=== PATIENT | male | born 1955 | race African-American/Black ===

== ENCOUNTER 2017-07-11 13:40 | Inpatient (IN) | payer OTHER ==
[~2017-07-11] VITALS: Ht 175.3 cm; Wt 86.0 kg
[2017-07-11] VITALS (13 sets, daily range): BP systolic 116–136; BP diastolic 68–90
[2017-07-11 14:22] LABS: Basophils # (auto) 0.1 uL; Basophils % (auto) 0.8 % (0.0-2.0); Eosinophils # (auto) 0.2 uL; Eosinophils % (auto) 2.5 % (0.0-7.0); Hematocrit 47.3 % (41.0-53.0); Hemoglobin 15.6 g/dL (13.5-17.5); Lymphocytes # (auto) 2.4 uL; Lymphocytes % (auto) 33.7 % (10.0-50.0); Mean Corpuscular Hemoglobin 30.4 pg (28.0-32.0); Mean Corpuscular Hgb Conc. 32.9 g/dL (32.0-36.0); Mean Corpuscular Volume 92.2 fL (80.0-100.0); Mean Platelet Volume 8.6 fL (6.9-10.8); Monocytes # (auto) 0.5 uL; Monocytes % (auto) 7.4 % (0.0-12.0); Neutrophils # (auto) 3.9 uL; Neutrophils % (auto) 55.6 % (37.0-80.0); Nucleated Red Blood Cells % 0.1 %; Platelet Count (auto) 246 10^3/uL (140-450); Red Cell Distribution Width 13.2 % (11.8-14.3); White Blood Cell 7.1 10^3/uL (4.4-10.8)
[2017-07-11 14:50] LABS: Albumin 3.6 g/dL (3.4-5.0); BUN/Creatinine Ratio 16.2; Bilirubin, Total 0.2 mg/dL (0.2-1.0); Calcium 8.9 mg/dL (8.5-10.1); Magnesium 2.3 mg/dL (1.6-2.6); Potassium 4.5 mmol/L (3.5-5.1); Total Protein 7.7 g/dL (6.4-8.2)
[2017-07-11] MEDS ORDERED: MORPHINE SULF INJ 2 MG/ML SYRINGE 1ML IV ONE (16:45)
[2017-07-11] MEDS ORDERED: ASPirin 81 mg TAB PO ONE (16:45)
[2017-07-11] MEDS ORDERED: ONDANSETRON HCL 4 MG/2 ML VIAL IV ONE (16:45)
[2017-07-11] MEDS ORDERED: HEPARIN SODIUM (PORCINE) 5000 UNITS/ML 1ML VIAL IV ONE (16:45)
[2017-07-11] MEDS ORDERED: CLOPIDOGREL BISULFATE 75 MG TAB PO SCH (17:00)
[2017-07-11] MEDS ORDERED: PROMETHAZINE HCL 25 MG/ML 1ML IV PRN (17:00)
[2017-07-11] MEDS: InsuLIN REG 1unit/0.01ml Soln (100units/ml) SC SCH ×2 (17:00→22:30)
[2017-07-11] MEDS ORDERED: DEXTROSE (50%) 50ML SYRG IV PRN (17:00)
[2017-07-11] MEDS ORDERED: LORazepam 0.5 MG TAB PO PRN (17:00)
[2017-07-11] MEDS ORDERED: MORPHINE SULF INJ 2 MG/ML SYRINGE 1ML IV PRN ×2 (17:00)
[2017-07-11] MEDS ORDERED: TEMAZEPAM 15 MG CAP PO PRN (17:00)
[2017-07-11] MEDS ORDERED: ALBUTEROL SULF 2.5 MG/0.5ML(0.5%) NEB SOLN NEB PRN (17:00)
[2017-07-11] MEDS ORDERED: NITROGLYCERIN 0.4 MG SL TAB SL PRN (17:00)
[2017-07-11] MEDS ORDERED: ACETAMINOPHEN 500 MG TAB PO PRN (17:00)
[2017-07-11] MEDS ORDERED: HYDROcodone-ACET 5/325MG TAB PO PRN (17:00)
[2017-07-11] MEDS ORDERED: LACTULOSE 20Gm/30ML SOLN PO PRN (17:00)
[2017-07-11] MEDS: ACCU-CHEK COMFORT CURVE STRIP VI SCH ×2 (17:18→22:30)
[2017-07-11] MEDS: SODIUM CHLORIDE 0.9% 1,000 ML IV SCH (17:23)
[2017-07-11] MEDS ORDERED: ENOXAPARIN SOD 80 MG/0.8ML SYRINGE SC SCH (17:30)
[2017-07-11] MEDS ORDERED: fentaNYL CITRATE 100 MCG/2 ML VL ONE (17:59)
[2017-07-11] MEDS ORDERED: ANGIOMAX 250 MG VIAL IV ONE (17:59)
[2017-07-11] MEDS ORDERED: SODIUM CHL 0.9% 50 ML ONE (18:00)
[2017-07-11] MEDS ORDERED: MIDAZOLAM HCL 1MG/1ML-2 ML VIAL ONE (18:00)
[2017-07-11] MEDS ORDERED: HEPARIN 1,000 UNITS/ml 1ML VIAL ONE (19:00)
[2017-07-11] MEDS ORDERED: IODIXANOL 320MG/ML 100ML BTL IV ONE (19:00)
[2017-07-11] MEDS ORDERED: LIDOCAINE 2%HCL (LOCAL ANESTH.) INJ 20ML MDV ONE (19:01)
[2017-07-11] MEDS ORDERED: PRASUGREL HCL 10 MG TAB ONE (19:48)
[2017-07-11] MEDS ORDERED: ATORVASTATIN 20 MG TAB PO SCH (22:00)
[2017-07-11] MEDS: ATORVASTATIN 20 MG TAB PO SCH (22:00)
[2017-07-11] MEDS: METOPROLOL TARTRATE 25 MG TAB PO SCH (22:30)
[2017-07-11] MEDS: SODIUM CHLOR 0.9% PF (SALINE LOCK) 10ML VIAL IV SCH (22:31)
[2017-07-12] VITALS (26 sets, daily range): BP systolic 92–126; BP diastolic 46–83
[2017-07-12 01:33] LABS: Urine RBC None Seen /hpf (0 - 3)
[2017-07-12 01:49] LABS: Urine Bilirubin Negative (Negative); Urine Blood Negative /uL (Negative); Urine Color Yellow (Yellow); Urine Glucose 4+ mg/dL (Normal); Urine Ketone Negative (Negative); Urine Nitrite Negative (Negative); Urine Squamous Epithelial Cell FEW /hpf (<5); Urine Urobilinogen Normal (Negative)
[2017-07-12 04:20] LABS: Albumin 3.2 g/dL (3.4-5.0); BUN/Creatinine Ratio 21.2; Bilirubin, Total 0.6 mg/dL (0.2-1.0); Calcium 8.3 mg/dL (8.5-10.1); Potassium 4.4 mmol/L (3.5-5.1); Total Protein 6.2 g/dL (6.4-8.2)
[2017-07-12 04:21] LABS: Basophils # (auto) 0 uL; Basophils % (auto) 0.5 % (0.0-2.0); Eosinophils # (auto) 0.1 uL; Hematocrit 41.5 % (41.0-53.0); Hemoglobin 13.7 g/dL (13.5-17.5); Lymphocytes # (auto) 1.6 uL; Lymphocytes % (auto) 19.2 % (10.0-50.0); Mean Corpuscular Hemoglobin 30.2 pg (28.0-32.0); Mean Corpuscular Hgb Conc. 33.1 g/dL (32.0-36.0); Mean Corpuscular Volume 91.2 fL (80.0-100.0); Mean Platelet Volume 8.8 fL (6.9-10.8); Monocytes # (auto) 0.5 uL; Neutrophils # (auto) 6.2 uL; Neutrophils % (auto) 73.3 % (37.0-80.0); Nucleated Red Blood Cells % 0.1 %; Platelet Count (auto) 200 10^3/uL (140-450); Red Cell Distribution Width 12.9 % (11.8-14.3); White Blood Cell 8.4 10^3/uL (4.4-10.8)
[2017-07-12] MEDS: SODIUM CHLOR 0.9% PF (SALINE LOCK) 10ML VIAL IV SCH ×3 (06:00→22:10)
[2017-07-12] MEDS: SODIUM CHLORIDE 0.9% 1,000 ML IV SCH (06:06)
[2017-07-12] MEDS ORDERED: CLOPIDOGREL BISULFATE 75 MG TAB PO ONE (07:00)
[2017-07-12] MEDS: InsuLIN REG 1unit/0.01ml Soln (100units/ml) SC SCH ×4 (07:13→22:10)
[2017-07-12] MEDS: ACCU-CHEK COMFORT CURVE STRIP VI SCH ×4 (07:13→22:11)
[2017-07-12] MEDS: METOPROLOL TARTRATE 25 MG TAB PO SCH ×2 (10:00→22:09)
[2017-07-12] MEDS ORDERED: CLOPIDOGREL BISULFATE 75 MG TAB PO SCH (10:00)
[2017-07-12] MEDS ORDERED: NITROGLYCERIN 0.2MG/HR TOPICAL PATCH TD SCH (10:00)
[2017-07-12] MEDS: ASPirin 81 mg TAB PO SCH (10:56)
[2017-07-12] MEDS: PANTOPRAZOLE 40 MG TAB PO SCH (10:56)
[2017-07-12] MEDS: ATORVASTATIN 20 MG TAB PO SCH (22:10)
[2017-07-13 05:20] VITALS: BP 115/69
[2017-07-13] MEDS: SODIUM CHLOR 0.9% PF (SALINE LOCK) 10ML VIAL IV SCH (05:43)
[2017-07-13] MEDS: ACCU-CHEK COMFORT CURVE STRIP VI SCH ×2 (06:51→11:30)
[2017-07-13] MEDS: InsuLIN REG 1unit/0.01ml Soln (100units/ml) SC SCH ×2 (06:52→11:30)
[2017-07-13 09:00] VITALS: BP 103/62
[2017-07-13] MEDS ORDERED: CLOPIDOGREL BISULFATE 75 MG TAB PO SCH (10:00)
[2017-07-13 11:00] VITALS: BP 115/69
[2017-07-13] MEDS: ASPirin 81 mg TAB PO SCH (11:48)
[2017-07-13] MEDS: METOPROLOL TARTRATE 25 MG TAB PO SCH (11:48)
[2017-07-13] MEDS: PANTOPRAZOLE 40 MG TAB PO SCH (11:48)
== END 2017-07-13 12:30 | disposition home or self-care (01) | DRG 247 ==
LOC: ER 13:40 → TELE 13:41 → ICU WEST 20:12 → TELE-CENTR 07-12 15:34
PROVIDERS: ADMIT Internal Medicine; ATTEND Internal Medicine
PROC: 027034Z Dilation of Coronary Artery, One Artery with Drug-eluting Intraluminal Device, Percutaneous Approach (ICD-10-PCS; principal; 2017-07-11)
PROC: B2111ZZ Fluoroscopy of Multiple Coronary Arteries using Low Osmolar Contrast (ICD-10-PCS; 2017-07-11)
PROC: 4A023N7 Measurement of Cardiac Sampling and Pressure, Left Heart, Percutaneous Approach (ICD-10-PCS; 2017-07-11)
DX: I21.4 Non-ST elevation (NSTEMI) myocardial infarction (principal); E11.9 Type 2 diabetes mellitus without complications; E78.5 Hyperlipidemia, unspecified; I10 Essential (primary) hypertension; I25.119 Atherosclerotic heart disease of native coronary artery with unspecified angina pectoris; I24.9 Acute ischemic heart disease, unspecified; J44.9 Chronic obstructive pulmonary disease, unspecified; I25.2 Old myocardial infarction; Z79.02 Long term (current) use of antithrombotics/antiplatelets; Z79.82 Long term (current) use of aspirin; Z79.899 Other long term (current) drug therapy; Z91.14 Patient's other noncompliance with medication regimen; Z91.19 Patient's noncompliance with other medical treatment and regimen
CPT/HCPCS: 36415; 71020; 80053; 80061; 80307; 81001; 82550; 82947; 82962; 83036; 83735; 84484; 85025; 85652; 86141; 86850; 86900; 86901; 87081; 93005; 93306; 94640; 96361; 96365; 96375; 99152; 99153; C1874; J1815; J2250; Q9967